=== PATIENT | male | born 1955 | race Two or more races ===

== ENCOUNTER → 2016-05-24 | Outpatient (CLI) | payer MEDICARE, BC ==
[~2016-05-24] MED LIST: /RANI15TA PO; ALEV220C2 PO; AMLO5TAB2 PO; ASPI1TAB PO; BUTR20DI2 TD; CALC600T7 PO; CYCL5TAB PO; FISH1000 PO; GABA100C PO; GABA300C2 PO; GLUC250C5 PO; MULTCAP11 PO; NEUR800T PO; NIAC500T5 PO; OXYM7.5T PO; PROVENTIL; SENN1TAB2 PO; SIMV20TA2 PO; TERA1CA PO; VITA-112 PO; miralax OR; trazadone PO
--- NOTE | 2016-05-25 09:33 | REP ---
Partial thoracic spine series: Nine views. History: Check placement dorsal column stimulator. 19 seconds of fluoroscopy time is reported. Findings: A sequence of nine fluoroscopically obtained last image hold spot radiographs of the thoracic spine document dorsal column stimulator lead position and power plant. Signed by Trino Lewis MD 05/25/2016 03:01 P
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
== END ==
LOC: M PAIN 15:20
PROVIDERS: ATTEND Anesthesiology
DX: M54.5 Low back pain (principal); M96.1 Postlaminectomy syndrome, not elsewhere classified; G89.29 Other chronic pain; Z79.891 Long term (current) use of opiate analgesic; Z79.899 Other long term (current) drug therapy; E78.00 Pure hypercholesterolemia, unspecified; B19.9 Unspecified viral hepatitis without hepatic coma; Z86.73 Personal history of transient ischemic attack (TIA), and cerebral infarction without residual deficits; F41.9 Anxiety disorder, unspecified; K21.9 Gastro-esophageal reflux disease without esophagitis; N40.0 Benign prostatic hyperplasia without lower urinary tract symptoms

== ENCOUNTER → 2016-06-29 | Outpatient (CLI) | payer MEDICARE, BC ==
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
== END ==
LOC: M PAIN 12:40
PROVIDERS: ATTEND Anesthesiology
DX: M54.5 Low back pain (principal); M96.1 Postlaminectomy syndrome, not elsewhere classified; G89.29 Other chronic pain; Z79.82 Long term (current) use of aspirin; Z79.899 Other long term (current) drug therapy; I10 Essential (primary) hypertension; E78.00 Pure hypercholesterolemia, unspecified; K21.9 Gastro-esophageal reflux disease without esophagitis

== ENCOUNTER 2016-07-21 05:58 | Day surgery (SDC) | payer MEDICARE, BC, OTHER ==
[~2016-07-21] VITALS: Ht 175.3 cm; Wt 98.4 kg
[2016-07-21] VITALS (9 sets, daily range): BP systolic 124–145; BP diastolic 60–79
[~2016-07-21 05:58] MED LIST changes: +ALFU10TA2 PO; +CALC1TAB18 PO; +CALCTAB23 PO; +CURCPOW XX; +DARI15TA PO; +DESI50TA PO; +GLUC1CAP PO; +HYDR4TAB PO; +MELA10CA2 PO; +MIRA3350 PO; +MOVA1TAB2 PO; +OMEP40CA2 PO; +POLY33502 PO; +PROA1AER INH; +PROBCAP4 PO; +RANI1TAB6 PO; +SOMA350T PO; +TERA2CAP3 PO; +VITA200038 PO
[2016-07-21] MEDS ORDERED: LR 1,000 ML IV ONE (06:00)
[2016-07-21] MEDS ORDERED: CEFUROXIME SODIUM 1.5 GM in D5W MINI-BAG PLUS 50 ML IV ONE (06:15)
[2016-07-21] MEDS ORDERED: dexameTHASONE 4 MG/ML 1ML VIAL (J1100) IV ONE (06:15)
[2016-07-21] MEDS ORDERED: MULT1TAB36 PO (06:39)
[2016-07-21] MEDS ORDERED: ASPI81TA85 PO (06:39)
[2016-07-21] MEDS ORDERED: FISH5CAP PO (06:39)
[2016-07-21] MEDS ORDERED: OMEG1400 PO (06:39)
[2016-07-21] MEDS ORDERED: LIDOCAINE PRES-FREE 2% 10ML AMP As Ordered ONE (07:18)
[2016-07-21] MEDS ORDERED: ROCURONIUM BROMIDE 50 MG/5 ML VIAL As Ordered ONE ×3 (07:18→11:20)
[2016-07-21] MEDS ORDERED: PROPOFOL 200 MG/20 ML VIAL As Ordered ONE (07:18)
[2016-07-21] MEDS ORDERED: fentaNYL 250 MCG/5 ML INJECTION (J3010) As Ordered ONE (07:18)
[2016-07-21] MEDS ORDERED: MIDAZOLAM INJ 2 MG/2 ML VIAL (J2250) As Ordered ONE (07:20)
[2016-07-21] MEDS ORDERED: THROMBIN SOLN 20,000 UNITS KIT As Ordered ONE (08:02)
[2016-07-21] MEDS ORDERED: BACITRACIN PWD 50,000 UNITS VIAL As Ordered ONE ×2 (08:02→10:43)
[2016-07-21] MEDS ORDERED: SEVOFLURANE INHAL SOLN 250 ML BTL As Ordered ONE (08:39)
[2016-07-21] MEDS ORDERED: ePHEDrine SULFATE 25 MG/5 ML(5MG/ML) SYRINGE As Ordered ONE ×2 (08:51→09:30)
[2016-07-21] MEDS ORDERED: PHENYLephrine HCL 500 MCG/5 ML (100MCG/ML) SYRINGE (J2370) As Ordered ONE (08:51)
[2016-07-21] MEDS ORDERED: amLODIPine 5 MG TAB PO SCH ×2 (09:00→17:30)
[2016-07-21] MEDS ORDERED: GLYCOPYRROLATE INJ 0.2 MG/ML 2 ML VIAL As Ordered ONE (09:43)
[2016-07-21] MEDS ORDERED: METOCLOPRAMIDE INJ 10MG/2ML VIAL (J2765) As Ordered ONE (09:43)
[2016-07-21] MEDS ORDERED: NEOSTIGMINE 1MG/ML 5 ML SYRINGE (J2710) As Ordered ONE (09:43)
[2016-07-21] MEDS ORDERED: ONDANSETRON 4MG/2ML VIAL (J2405) As Ordered ONE (09:43)
[2016-07-21] MEDS ORDERED: HYDROmorphone HCL 2 MG/ML 1ML VIAL (J1170) As Ordered ONE (10:11)
[2016-07-21] MEDS ORDERED: MORPHINE 4 MG/ML 1ML SYRINGE IV PRN (12:45)
[2016-07-21] MEDS ORDERED: ACETAMINOPHEN TAB 650MG DOSE (2X325MG) PO PRN (12:45)
[2016-07-21] MEDS: LR 1,000 ML IV SCH ×2 (12:45→20:03)
[2016-07-21] MEDS ORDERED: ONDANSETRON 4MG/2ML VIAL (J2405) IV PRN ×2 (12:45→13:00)
[2016-07-21] MEDS ORDERED: NORCO, ANEXSIA 5/325MG TABLET (HYDROcodone/ACETAMINOPHEN) PO PRN (12:45)
[2016-07-21] MEDS ORDERED: fentaNYL 100 MCG/2 ML INJECTION (J3010) As Ordered ONE (12:49)
[2016-07-21] MEDS: fentaNYL 100 MCG/2 ML INJECTION (J3010) IV PRN ×4 (12:53→13:14)
[2016-07-21] MEDS ORDERED: MEPERIDINE INJ 25 MG/ML VIAL (J2175) IV PRN (13:00)
[2016-07-21] MEDS ORDERED: LR 1,000 ML IV SCH (13:00)
[2016-07-21] MEDS ORDERED: PERCOCET 5MG/325MG TAB PO PRN (13:00)
[2016-07-21] MEDS ORDERED: PROMETHAZINE INJ 25 MG/ML VIAL (J2550) IV PRN (13:00)
[2016-07-21] MEDS: HYDROmorphone HCL 1 MG/ML SYRINGE (J1170) IV PRN ×6 (13:25→13:50)
[2016-07-21] MEDS ORDERED: PERCOCET 5MG/325MG TAB As Ordered ONE (14:01)
[2016-07-21] MEDS: CEFUROXIME SODIUM 750 MG in D5W MINI-BAG PLUS 50 ML IV SCH (16:28)
[2016-07-21] MEDS: CARISOPRODOL 350 MG TAB PO SCH ×2 (16:28→20:42)
[2016-07-21] MEDS: HumaLOG INSULIN (NovoLOG) PER UNIT SC SCH (17:30)
[2016-07-21] MEDS: NORCO, ANEXSIA 5/325MG TABLET (HYDROcodone/ACETAMINOPHEN) PO PRN (20:41)
[2016-07-21] MEDS ORDERED: TERAZOSIN 1 MG CAP PO SCH (21:00)
[2016-07-21] MEDS ORDERED: HumaLOG INSULIN (NovoLOG) PER UNIT SC SCH (21:00)
[2016-07-21] MEDS ORDERED: SIMVASTATIN 20 MG TAB PO SCH (21:00)
[2016-07-21] MEDS ORDERED: OMEPRAZOLE 20 MG CAP PO SCH (21:00)
[2016-07-22] VITALS: BP 147/83
[2016-07-22] MEDS: CEFUROXIME SODIUM 750 MG in D5W MINI-BAG PLUS 50 ML IV SCH ×2 (00:36→08:11)
[2016-07-22 04:00] VITALS: BP 167/77
[2016-07-22] MEDS: NORCO, ANEXSIA 5/325MG TABLET (HYDROcodone/ACETAMINOPHEN) PO PRN ×2 (06:46→11:00)
[2016-07-22 08:00] VITALS: BP 149/81
[2016-07-22] MEDS: HumaLOG INSULIN (NovoLOG) PER UNIT SC SCH (08:10)
[2016-07-22] MEDS: CARISOPRODOL 350 MG TAB PO SCH (08:11)
[2016-07-22] MEDS ORDERED: CARI350T20 PO ×2 (08:56→08:58)
[2016-07-22] MEDS ORDERED: MOM 30ML SUSPENSION UDC PO ONE (09:00)
[2016-07-22] MEDS ORDERED: AUGM875T27 PO (09:01)
[2016-07-22] MEDS ORDERED: SOMA350T PO (09:03)
== END 2016-07-22 11:15 | disposition home or self-care (01) ==
LOC: M SDC 05:58 → M PED 14:23 → M SDC 07-22 11:15
PROVIDERS: ATTEND Neurological Surgery
DX: T85.112A Breakdown (mechanical) of implanted electronic neurostimulator of spinal cord electrode (lead), initial encounter (principal); M96.1 Postlaminectomy syndrome, not elsewhere classified; M47.896 Other spondylosis, lumbar region; J45.909 Unspecified asthma, uncomplicated; I10 Essential (primary) hypertension; M12.9 Arthropathy, unspecified; M54.9 Dorsalgia, unspecified; H26.9 Unspecified cataract; F32.9 Major depressive disorder, single episode, unspecified; K21.9 Gastro-esophageal reflux disease without esophagitis; H40.9 Unspecified glaucoma; R39.15 Urgency of urination; E78.00 Pure hypercholesterolemia, unspecified; K57.32 Diverticulitis of large intestine without perforation or abscess without bleeding; R29.898 Other symptoms and signs involving the musculoskeletal system; F41.9 Anxiety disorder, unspecified; G47.33 Obstructive sleep apnea (adult) (pediatric); R06.83 Snoring; N40.0 Benign prostatic hyperplasia without lower urinary tract symptoms; R06.02 Shortness of breath; Z88.8 Allergy status to other drugs, medicaments and biological substances; Z91.09 Other allergy status, other than to drugs and biological substances; Z79.899 Other long term (current) drug therapy; Z86.19 Personal history of other infectious and parasitic diseases; Z86.73 Personal history of transient ischemic attack (TIA), and cerebral infarction without residual deficits; Z77.090 Contact with and (suspected) exposure to asbestos; Z87.442 Personal history of urinary calculi; Z87.891 Personal history of nicotine dependence
CPT/HCPCS: 63664; 76000; C1778; J0697; J1100; J1170; J2250; J2370; J2405; J2710; J2765; J3010; L9900